=== PATIENT | male | born 1955 | race Caucasian/White ===

== ENCOUNTER → 2019-04-09 | Outpatient (CLI) | payer BC ==
[~2019-04-09] MED LIST: BETIMOL10 ML OPHTHALMIC; FLUTICASONE NASAL; IBUPROFEN 200200 M1 PO; LEVOTHYROXIN0.025 MG PO; OMEPRAZOLE 20 M20 M1 PO; SIMVASTATIN20 MG PO
== END ==
LOC: M.WC 07:59
DX: M27.2 Inflammatory conditions of jaws (principal); L59.8 Other specified disorders of the skin and subcutaneous tissue related to radiation; H40.9 Unspecified glaucoma; I10 Essential (primary) hypertension; Z85.818 Personal history of malignant neoplasm of other sites of lip, oral cavity, and pharynx; Z87.891 Personal history of nicotine dependence; Z85.858 Personal history of malignant neoplasm of other endocrine glands; Y84.2 Radiological procedure and radiotherapy as the cause of abnormal reaction of the patient, or of later complication, without mention of misadventure at the time of the procedure

== ENCOUNTER → 2019-04-13 | Outpatient (CLI) | payer BC | LOC: M.WC 13:02 | DX: L59.8 Other specified disorders of the skin and subcutaneous tissue related to radiation (principal); I10 Essential (primary) hypertension; M27.8 Other specified diseases of jaws; Z85.818 Personal history of malignant neoplasm of other sites of lip, oral cavity, and pharynx; Z87.891 Personal history of nicotine dependence; Y84.2 Radiological procedure and radiotherapy as the cause of abnormal reaction of the patient, or of later complication, without mention of misadventure at the time of the procedure ==

== ENCOUNTER → 2019-05-01 | Outpatient (CLI) | payer BC | LOC: M.WC 05:06 | DX: L59.8 Other specified disorders of the skin and subcutaneous tissue related to radiation (principal); M27.8 Other specified diseases of jaws; H40.9 Unspecified glaucoma; I10 Essential (primary) hypertension; Z87.891 Personal history of nicotine dependence; Z85.858 Personal history of malignant neoplasm of other endocrine glands; Y84.2 Radiological procedure and radiotherapy as the cause of abnormal reaction of the patient, or of later complication, without mention of misadventure at the time of the procedure ==

== ENCOUNTER → 2019-05-14 | Outpatient (CLI) | payer BC | LOC: M.WC 02:04 | DX: M27.8 Other specified diseases of jaws (principal); L59.8 Other specified disorders of the skin and subcutaneous tissue related to radiation; H40.9 Unspecified glaucoma; I10 Essential (primary) hypertension; Z87.891 Personal history of nicotine dependence; Z85.858 Personal history of malignant neoplasm of other endocrine glands; Z85.818 Personal history of malignant neoplasm of other sites of lip, oral cavity, and pharynx; Y84.2 Radiological procedure and radiotherapy as the cause of abnormal reaction of the patient, or of later complication, without mention of misadventure at the time of the procedure ==